=== PATIENT | female | born 1940 | race Caucasian/White ===

== ENCOUNTER → 2017-04-30 | Outpatient (CLI) | payer MEDICARE, BC ==
--- NOTE | 2017-05-01 15:44 | SLEEP ---
DATE OF STUDY: 04/30/2017 SLEEP STUDY ATTENDING PHYSICIAN: Scar Rios MD The patient is 76 years old, who weighs 176 pounds with a BMI of 25. The patient's [place] score was 10. Sleep study was performed at [facility]. Review of medications also reveals hydrocodone. During the night study, the patient spent 410 minutes in bed and slept for 241 minutes with a low sleep efficiency of 59%. Sleep latency was 22 minutes with a REM latency of 366 minutes. Overall, sleep architecture showed increased stage I and stage II sleep, reduced slow wave and reduced REM sleep. During the night study, the patient had 5 obstructive apneas, 3 mixed apneas, no central apneas and 16 hypopneas. The patient's apnea-hypopnea index was 6 per hour, supine index 30 per hour with a REM index of 2 per hour. Review of nocturnal oximetry study revealed a mean oxygen saturation of 96% with lowest of 77%. 32% of time oxygen saturation remained between 80% and 89%. EKG monitoring revealed normal sinus rhythm. No sustained arrhythmias were observed. Average heart rate was 63 beats per minute. PLMS were seen at an index of 73 per hour and 9 per hour caused EEG arousals. Due to low AHI, the patient did not meet the split night criteria for CPAP initiation. IMPRESSION: 1. Mild sleep apnea-hypopnea syndrome at an AHI of 6 per hour with worsening AHI to 30 per hour during supine sleep. 2. 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 3. Reduced sleep efficiency of 59%, resulting from sleep maintenance insomnia. 4. Severe periodic limb movements of sleep at an index of 73 per hour and 9 per hour caused EEG arousals. RECOMMENDATIONS: 1. The patient did not meet the split night criteria for CPAP initiation. The patient has mild sleep apnea. The patient does have mild subjective hypersomnia as well. 2. I would recommend avoiding supine sleep as the initial form of treatment. Patient's sleep apnea was predominantly positional. 3. The patient's daytime sleepiness can also be related to poor sleep efficiency resulting from sleep maintenance insomnia and it should be further evaluated and treated. 4. The patient should also be further evaluated for symptoms of restless legs during the day. 5. The patient's nocturnal hypoxia is also related to chronic use of narcotics with hypoventilation and would recommend minimizing the use of such medication and may be contributing to daytime sleepiness as well. 6. If patient continues to remains sleepy despite correction of above etiologies, then the patient's sleep apnea at that time can be treated with either oral appliance or CPAP. TAE FOURNIER MD DR: MADHU/ayla JOB#: [id number] / [id number] SCAR Hutchison MD MTDD
== END | disposition home or self-care (01) ==
LOC: SLPLAB 18:53
PROVIDERS: ATTEND Internal Medicine Pulmonary Disease
DX: G47.33 Obstructive sleep apnea (adult) (pediatric) (principal); G47.09 Other insomnia
CPT/HCPCS: 95810